=== PATIENT | male | born 1995 | race Caucasian/White ===

== ENCOUNTER → 2025-02-21 | Outpatient (CLI) | payer BC ==
--- NOTE | 2025-02-21 12:40 | XR ---
EXAMINATION TYPE: XR shoulder complete LT DATE OF EXAM: 02/21/2025 CLINICAL INDICATION: Male, 29 years old with history of [id number] PAIN LT HAND, PAIN LT SHLD, pa in TECHNIQUE: Three views of the left shoulder are obtained. COMPARISON: None. FINDINGS: There is no acute fracture/dislocation evident in the left shoulder. The acromioclavicula r and glenohumeral joint spaces appear within normal limits. The visualized ribs are intact and unre markable. IMPRESSION: Unremarkable study. [facility], , 02/21/2025 12:38 PM
--- NOTE | 2025-02-21 12:42 | XR ---
EXAMINATION TYPE: XR hand complete LT DATE OF EXAM: 02/21/2025 CLINICAL INDICATION: Male, 29 years old with history of [id number] PAIN LT HAND, PAIN LT SHLD, pa in TECHNIQUE: Frontal, lateral and oblique images of the left hand are obtained. COMPARISON: None. FINDINGS: There is no acute fracture/dislocation evident in the left hand. The joint spaces in the l eft hand appear within normal limits. The overlying soft tissue appears unremarkable. IMPRESSION: Unremarkable study. [facility], , 02/21/2025 12:40 PM
== END | disposition home or self-care (01) ==
LOC: RADXRYALE 11:43
PROVIDERS: ATTEND Internal Medicine
DX: S60.922A Unspecified superficial injury of left hand, initial encounter (principal); M25.512 Pain in left shoulder